=== PATIENT | male | born 1990 | race Caucasian/White ===

== ENCOUNTER → 2016-05-25 | Outpatient (CLI) | payer OTHER ==
--- NOTE | 2016-05-25 11:07 | REP ---
Clinical: Ingested foreign body. Comparison: Multiple examinations dated 04/25/2016 - 04/10/2016. Findings: The previously noted round foreign body consistent with ring is now identified within the pelvis either within distal small bowel or sigmoid colon and appears to have progressed from previous images when was identified in the left upper quadrant. No evidence for associated bowel obstruction and no obvious free air to suggest perforation. The bowel gas pattern is nonspecific. No organomegaly. Skeletal structures stable and intact. Impression: Foreign body now identified with in the pelvis likely in distal small bowel or sigmoid colon. Signed by Zach Silva MD 05/25/2016 10:59 A
== END ==
LOC: M RAD 10:36
PROVIDERS: ATTEND Surgery
DX: T18.9XXA Foreign body of alimentary tract, part unspecified, initial encounter (principal)